=== PATIENT | female | born 1975 | race Caucasian/White ===

== ENCOUNTER 2019-04-04 07:48 | Day surgery (SDC) | payer BC ==
[~2019-04-04] VITALS: Ht 162.6 cm; Wt 73.0 kg
[2019-04-04] MEDS ORDERED: LACTATED RINGERS 1,000 ML IV SCH (08:13)
[2019-04-04 08:20] VITALS: BP 135/95
[2019-04-04] MEDS ORDERED: PLEASE ENTER HEIGHT AND WEIGHT MC SCH (08:30)
[2019-04-04] MEDS ORDERED: CEFOTETAN PMX 2GM/50ML 50 ML IV ONE (08:30)
[2019-04-04] MEDS ORDERED: NONE PER PT (09:13)
[2019-04-04 09:19] LABS: HCG UR SG 1.023 (1.003-1.030)
[2019-04-04 09:21] LABS: INTERNATIONAL NORMALIZED RATIO 0.94 (0.93-1.1)
[2019-04-04 09:22] LABS: BASOPHILS # (AUTO) 0.04 x10^3/uL (0-0.1); BASOPHILS % (AUTO) 1 % (0-1); EOSINOPHILS # (AUTO) 0.18 x10^3/uL (0-0.4); EOSINOPHILS % (AUTO) 3 % (1-7); LYMPHOCYTES # (AUTO) 1.69 x10^3/uL (1-3.4); LYMPHOCYTES % (AUTO) 25 % (22-44); MD NO; MEAN CORPUSCULAR HEMOGLOBIN 28.8 pg (27.0-34.8); MEAN CORPUSCULAR HGB CONC 33.2 g/dL (32.4-35.8); MEAN CORPUSCULAR VOLUME 86.7 fL (80-100); MONOCYTES # (AUTO) 0.45 x10^3/uL (0.2-0.8); MONOCYTES % (AUTO) 7 % (2-9); NEUTROPHILS # (AUTO) 4.55 x10^3/uL (1.8-6.8); NEUTROPHILS % (AUTO) 66 % (42-75); PLATELET COUNT 319 x10^3/uL (130-400); RED BLOOD COUNT 5.43 x10^6/uL (3.82-5.3); RED CELL DISTRIBUTION WIDTH 12.7 % (9.6-15.2)
[2019-04-04 09:23] LABS: ALBUMIN 3.9 g/dL (3.4-5.0); ANION GAP 5 mmol/L (5-15); CALCIUM 8.7 mg/dL (8.5-10.1); CHLORIDE 109 mmol/L (98-107)
[2019-04-04 09:26] LABS: ALANINE AMINOTRANSFERASE 46 U/L (12-78); ALKALINE PHOSPHATASE 59 U/L (45-117); BILIRUBIN,TOTAL 1.1 mg/dL (0.2-1.0); CREATININE 0.89 mg/dL (0.55-1.02); TOTAL PROTEIN 7.7 g/dL (6.4-8.2)
[2019-04-04] MEDS ORDERED: FENTANYL PF 100 MCG/2ML ONE (11:26)
[2019-04-04] MEDS ORDERED: MIDAZOLAM 1 MG/ML, 2ML ONE (11:26)
[2019-04-04] MEDS ORDERED: KETOROLAC 30 MG/1 ML ONE (11:27)
[2019-04-04] MEDS ORDERED: PROPOFOL 10 MG/ML, 20ML ONE (11:27)
[2019-04-04] MEDS ORDERED: DEXAMETHASONE 4 MG/ML, 1ML ONE (11:27)
[2019-04-04] MEDS ORDERED: ONDANSETRON 2MG/ML, 2ML ONE (11:27)
[2019-04-04] MEDS ORDERED: OXYcodone 5 MG/5 ML ORAL.SOL UDC PO PRN (12:30)
[2019-04-04] MEDS ORDERED: FENTANYL PF 100 MCG/2ML IV PRN (12:30)
[2019-04-04] MEDS ORDERED: HALOPERIDOL 5 MG/ML IV PRN (12:30)
[2019-04-04] MEDS ORDERED: MEPERIDINE/PF 25MG/ML,1ML IVPush PRN (12:30)
[2019-04-04] MEDS ORDERED: HYDROmorphone 2 MG/ML, 1ML IVPush PRN (12:30)
[2019-04-04] MEDS ORDERED: hydrALAzine 20 MG/ML, 1ML IV PRN (12:30)
[2019-04-04] MEDS ORDERED: ACETAMINOPHEN 325 MG TABLET PO PRN (12:30)
== END 2019-04-04 14:00 | disposition home or self-care (01) ==
LOC: OUT 07:48
PROVIDERS: ATTEND Specialist
DX: C53.0 Malignant neoplasm of endocervix (principal); Z79.01 Long term (current) use of anticoagulants; Z80.41 Family history of malignant neoplasm of ovary; Z80.3 Family history of malignant neoplasm of breast; Z80.8 Family history of malignant neoplasm of other organs or systems
CPT/HCPCS: 36415; 57520; 80053; 81025; 85025; 85610; 85730; 88305; 88307; J1100; J1885; J2250; J2405; J2704; J3010; J3490; J7120

== ENCOUNTER 2019-04-25 10:36 | Emergency (ER) | payer BC ==
[~2019-04-25] VITALS: Ht 162.6 cm; Wt 74.0 kg
[~2019-04-25 10:36] MED LIST: NONE PER PT
--- NOTE | 2019-04-25 11:04 | NUR ---
PT STATES CONE PROCEDURE WAS DONE BY DR. JUNIOR. REPORTS SOME SPOTTING SINCE PROCEDURE BUT HEAVY BLEEDING/CLOTS STARTED LAST NIGHT. STATES IT'S ABOUT THE TIME THAT HER MENSTRUAL CYCLE WOULD BE STARTING. C/O CRAMPING PAIN.
[2019-04-25 11:30] VITALS: BP 124/89
--- NOTE | 2019-04-25 11:42 | NUR ---
ERP WAS IN FOR RECHECK. PT UNDERSTANDS PLAN FOR DISCHARGE AND SHE WILL GO DIRECTLY TO DR. JUNIOR'S OFFICE.
[2019-04-25 11:52] LABS: BASOPHILS # (AUTO) 0.04 x10^3/uL (0-0.1); BASOPHILS % (AUTO) 1 % (0-1); EOSINOPHILS # (AUTO) 0.12 x10^3/uL (0-0.4); EOSINOPHILS % (AUTO) 2 % (1-7); LYMPHOCYTES # (AUTO) 1.27 x10^3/uL (1-3.4); LYMPHOCYTES % (AUTO) 21 % (22-44); MD NO; MEAN CORPUSCULAR HEMOGLOBIN 28.9 pg (27.0-34.8); MEAN CORPUSCULAR HGB CONC 33.8 g/dL (32.4-35.8); MEAN CORPUSCULAR VOLUME 85.6 fL (80-100); MEAN PLATELET VOLUME 8.3 fL (7.4-10.4); MONOCYTES # (AUTO) 0.45 x10^3/uL (0.2-0.8); MONOCYTES % (AUTO) 8 % (2-9); NEUTROPHILS # (AUTO) 4.07 x10^3/uL (1.8-6.8); NEUTROPHILS % (AUTO) 69 % (42-75); PLATELET COUNT 326 x10^3/uL (130-400); RED BLOOD COUNT 5.38 x10^6/uL (3.82-5.3); RED CELL DISTRIBUTION WIDTH 13.4 % (9.6-15.2)
[2019-04-25 11:59] LABS: ALANINE AMINOTRANSFERASE 40 U/L (12-78); ALBUMIN 3.7 g/dL (3.4-5.0); ANION GAP 7 mmol/L (5-15); CALCIUM 8.6 mg/dL (8.5-10.1); CHLORIDE 109 mmol/L (98-107)
[2019-04-25 12:04] LABS: ALKALINE PHOSPHATASE 55 U/L (45-117); BILIRUBIN,TOTAL 0.9 mg/dL (0.2-1.0); CREATININE 0.97 mg/dL (0.55-1.02); TOTAL PROTEIN 7.4 g/dL (6.4-8.2)
--- NOTE | 2019-04-25 12:10 | NUR ---
PT AMBULATED OUT OF ED WITH PRIOR TO RECEIVING DISCHARGE INSTRUCTIONS. ERP DID INSTRUCT PT TO GO DIRECTLY TO DR. JUNIOR'S OFFICE FOR F/U.
[2019-04-25 12:13] LABS: INTERNATIONAL NORMALIZED RATIO 1.71 (0.93-1.1); PROTHROMBIN TIME 18.2 Seconds (9.6-11.5)
== END 2019-04-25 12:12 | disposition home or self-care (01) ==
LOC: ED 11:38
DX: N93.9 Abnormal uterine and vaginal bleeding, unspecified (principal); R42 Dizziness and giddiness; Z85.41 Personal history of malignant neoplasm of cervix uteri
CPT/HCPCS: 36415; 80053; 84703; 85025; 85610; 85730; 86850; 86900; 99283

== ENCOUNTER 2019-04-26 13:27 | Outpatient (CLI) | payer BC | END 2019-04-26 23:59 | disposition home or self-care (01) | LOC: PETCFH 13:27 | PROVIDERS: ATTEND Obstetrics & Gynecology | DX: N92.1 Excessive and frequent menstruation with irregular cycle (principal); D06.9 Carcinoma in situ of cervix, unspecified; R87.810 Cervical high risk human papillomavirus (HPV) DNA test positive | CPT/HCPCS: 78815; A9552 ==

== ENCOUNTER 2019-05-17 10:28 | Inpatient (IN) | payer BC ==
[~2019-05-17] VITALS: Ht 162.6 cm; Wt 77.4 kg
[2019-05-17] MEDS ORDERED: LACTATED RINGERS 1,000 ML IV SCH (10:40)
[2019-05-17] MEDS ORDERED: CEFOTETAN PMX 2GM/50ML 50 ML IV ONE (11:00)
[2019-05-17 11:19] LABS: HCG UR SG 1.024 (1.003-1.030)
[2019-05-17] MEDS ORDERED: EPINEPHRINE 1 MG/ML, 1ML ONE (11:53)
[2019-05-17] MEDS ORDERED: HEPARIN 1,000 UNITS/ML, 10ML ONE (11:53)
[2019-05-17] MEDS ORDERED: BUPIVACAINE/PF 0.25% ONE (11:53)
[2019-05-17] MEDS ORDERED: INDOCYANINE GREEN 25 MG VIAL ONE (11:53)
[2019-05-17] MEDS ORDERED: MIDAZOLAM 1 MG/ML, 2ML ONE (14:04)
[2019-05-17] MEDS ORDERED: FENTANYL PF 250 MCG/5ML ONE (14:04)
[2019-05-17] MEDS ORDERED: ROCURONIUM 10 MG/ML,10ML ONE (15:08)
[2019-05-17] MEDS ORDERED: CEFAZOLIN 1,000 MG ONE (15:08)
[2019-05-17] MEDS ORDERED: DEXAMETHASONE 4 MG/ML, 1ML ONE (15:08)
[2019-05-17] MEDS ORDERED: SUCCINYLCHOLINE 20 MG/ML, 10ML ONE (15:08)
[2019-05-17] MEDS ORDERED: ONDANSETRON 2MG/ML, 2ML ONE ×2 (15:08→22:53)
[2019-05-17] MEDS ORDERED: PROPOFOL 10 MG/ML, 20ML ONE (15:08)
[2019-05-17] MEDS ORDERED: hydrALAzine 20 MG/ML, 1ML IV PRN (16:30)
[2019-05-17] MEDS ORDERED: MEPERIDINE/PF 25MG/0.5ML IVPush PRN (16:30)
[2019-05-17] MEDS ORDERED: KETOROLAC 30 MG/1 ML IV PRN (16:30)
[2019-05-17] MEDS ORDERED: ALBUTEROL SULFATE 2.5 MG/3 ML NPPB PRN (16:30)
[2019-05-17] MEDS ORDERED: METOCLOPRAMIDE 5 MG/ML, 2ML IV PRN (16:30)
[2019-05-17] MEDS ORDERED: PROMETHAZINE 25 MG/ML, 1ML IV PRN (16:30)
[2019-05-17] MEDS ORDERED: LABETALOL 5MG/ML, 20ML IV PRN (16:30)
[2019-05-17] MEDS ORDERED: DIAZEPAM 5 MG/ML, 2ML IV PRN ×2 (16:30)
[2019-05-17] MEDS ORDERED: HYDROmorphone 1 MG/ML, 1ML INJ IV PRN (16:30)
[2019-05-17] MEDS ORDERED: ONDANSETRON 2MG/ML, 2ML IVPush PRN (16:30)
[2019-05-17] MEDS ORDERED: FENTANYL PF 100 MCG/2ML ONE (18:37)
[2019-05-17] MEDS ORDERED: OXYcodone 5 MG/5 ML ORAL.SOL UDC ONE ×2 (18:37→19:01)
[2019-05-17] MEDS: FENTANYL PF 100 MCG/2ML IV PRN ×2 (18:37→18:53)
[2019-05-17] MEDS: OXYcodone 5 MG/5 ML ORAL.SOL UDC PO PRN ×2 (18:48→19:02)
[2019-05-17] MEDS ORDERED: MEPERIDINE/PF 25MG/ML,1ML ONE (19:09)
[2019-05-17] MEDS ORDERED: KETOROLAC 30 MG/1 ML ONE (20:51)
[2019-05-17] MEDS ORDERED: OXYcodone/APAP 7.5/325MG TABLET ONE (20:52)
[2019-05-17] MEDS ORDERED: OXYcodone/APAP 7.5/325MG TABLET PO ONE (21:00)
[2019-05-17] MEDS ORDERED: MORPHINE SULFATE 4 MG/ML, 1ML IVPush PRN (21:00)
[2019-05-17] MEDS ORDERED: KETOROLAC 30 MG/1 ML IVPush ONE (21:00)
[2019-05-17] MEDS: ONDANSETRON 2MG/ML, 2ML IVPush PRN (22:56)
[2019-05-17] MEDS ORDERED: OXYcodone/APAP 7.5/325MG TABLET PO PRN (23:00)
[2019-05-17] MEDS ORDERED: KETOROLAC 30 MG/1 ML IVPush PRN (23:00)
[2019-05-18 03:11] VITALS: BP 113/76
[2019-05-18 06:45] VITALS: BP 119/78
[2019-05-18] MEDS: ONDANSETRON 2MG/ML, 2ML IVPush PRN (08:14)
[2019-05-18 09:44] LABS: BASOPHILS # (AUTO) 0.03 x10^3/uL (0-0.1); BASOPHILS % (AUTO) 0 % (0-1); EOSINOPHILS # (AUTO) 0.04 x10^3/uL (0-0.4); EOSINOPHILS % (AUTO) 1 % (1-7); LYMPHOCYTES # (AUTO) 1.14 x10^3/uL (1-3.4); LYMPHOCYTES % (AUTO) 15 % (22-44); MD NO; MEAN CORPUSCULAR HGB CONC 33.9 g/dL (32.4-35.8); MEAN CORPUSCULAR VOLUME 85.6 fL (80-100); MEAN PLATELET VOLUME 8.1 fL (7.4-10.4); MONOCYTES # (AUTO) 1.02 x10^3/uL (0.2-0.8); MONOCYTES % (AUTO) 13 % (2-9); NEUTROPHILS # (AUTO) 5.38 x10^3/uL (1.8-6.8); NEUTROPHILS % (AUTO) 71 % (42-75); PLATELET COUNT 294 x10^3/uL (130-400); RED BLOOD COUNT 4.77 x10^6/uL (3.82-5.3)
[2019-05-18 09:50] LABS: ANION GAP 8 mmol/L (5-15); CALCIUM 8.3 mg/dL (8.5-10.1); CHLORIDE 105 mmol/L (98-107); CREATININE 1.03 mg/dL (0.55-1.02)
[2019-05-18] MEDS: SODIUM CHLORIDE 0.9% 1,000 ML IV SCH ×2 (10:12→11:59)
[2019-05-18 14:57] VITALS: BP 118/80
== END 2019-05-18 15:30 | disposition home or self-care (01) | DRG 741 ==
LOC: OUT 10:28 → 4NE 19:50 → OUT 22:59
PROVIDERS: ADMIT Specialist; ATTEND Specialist
PROC: 0UT74ZZ Resection of Bilateral Fallopian Tubes, Percutaneous Endoscopic Approach (ICD-10-PCS; 2019-05-17)
PROC: 0T788DZ Dilation of Bilateral Ureters with Intraluminal Device, Via Natural or Artificial Opening Endoscopic (ICD-10-PCS; 2019-05-17)
PROC: 07BC4ZX Excision of Pelvis Lymphatic, Percutaneous Endoscopic Approach, Diagnostic (ICD-10-PCS; 2019-05-17)
PROC: 8E0W4CZ Robotic Assisted Procedure of Trunk Region, Percutaneous Endoscopic Approach (ICD-10-PCS; 2019-05-17)
PROC: 0UT94ZZ Resection of Uterus, Percutaneous Endoscopic Approach (ICD-10-PCS; principal; 2019-05-17 13:00)
DX: C53.9 Malignant neoplasm of cervix uteri, unspecified (principal); R33.9 Retention of urine, unspecified; Z90.710 Acquired absence of both cervix and uterus; Z79.899 Other long term (current) drug therapy
CPT/HCPCS: 36415; 74018; 80048; 81025; 85025; 88305; 88309; 88331; 88342; G0378; J0171; J0690; J1100; J1644; J1885; J2175; J2250; J2405; J2704; J3010; J3490; C2617; J0330; J7030; J7120